=== PATIENT | female | born 1970 | race Caucasian/White ===

== ENCOUNTER 2017-08-04 13:48 | Emergency (ER) | payer OTHER ==
[~2017-08-04] VITALS: Ht 165.1 cm; Wt 92.6 kg
[2017-08-04 14:50] LABS: HEMATOCRIT 44.3 % (36.0-46.0); HEMOGLOBIN 14.8 G/DL (11.9-15.5); MCH 30.8 PG (29.0-34.0); MCHC 33.4 G/DL (30.0-36.0); MCV 92.3 FL (83-99); RBC DIS.WIDTH-CV 14.7 % (11.8-14.6); RBC DIS.WIDTH-SD 50.2 % (39-53); WHITE BLOOD COUNT 13.5 K/uL (4.1-10.2)
[2017-08-04 14:59] LABS: ALBUMIN 4.5 g/dL (3.2-4.8)
[2017-08-04 15:00] LABS: CHLORIDE 98 mEq/L (99-109); POTASSIUM 3.6 mEq/L (3.7-5.4); SODIUM 142 mEq/L (136-147)
[2017-08-04 15:02] LABS: GLUCOSE 157 mg/dL (70-99); TOTAL PROTEIN 8.1 g/dL (6.4-8.3)
[2017-08-04 15:04] LABS: TOTAL BILIRUBIN 0.5 mg/dL (0.0-1.0)
[2017-08-04 15:05] LABS: ALKALINE PHOSPHATASE 63 IU/L (3-129)
[2017-08-04 15:06] LABS: CREATININE 0.9 mg/dL (0.6-1.3); GFR ESTIMATE (CALCULATED) > 59 mL/min/
[2017-08-04 15:07] LABS: AST (GOT) 11 IU/L (2-34); UREA NITROGEN (BUN) 20 mg/dL (9-23)
[2017-08-04 15:08] LABS: ALT (GPT) 11 IU/L (3-49)
[2017-08-04 15:09] LABS: LIPASE 6 U/L (1.0-51.0)
[2017-08-04 15:25] LABS: PLAT.SUFFICIENCY ADEQUATE; PLATELET COUNT 202 K/uL (156-360)
[2017-08-04 16:52] LABS: APPEARANCE CLEAR ((CLEAR)); BILIRUBIN NEGATIVE; BLOOD NEGATIVE; COLOR YELLOW ((YELLOW)); GLUCOSE (STRIP) 50; KETONES 20; LEUKOCYTES NEGATIVE; NITRITE NEGATIVE; PROTEIN (STRIP) 100
[2017-08-04 16:57] LABS: SPECIFIC GRAVITY > 1.060 (1.000-1.030)
[2017-08-04 17:29] LABS: BACTERIA NONE SEEN /HPF; EPITHELIAL CELLS 1+ /HPF; MUCUS TRACE /LPF; RED BLOOD CELLS 0-5 /HPF (0-5); UCUL ADDED? NO; WHITE BLOOD CELLS 0-5 /HPF (0-5)
[2017-08-04] MEDS ORDERED: ZOFRAN4 MG PO (17:43)
[2017-08-04 18:15] VITALS: BP 124/83
== END 2017-08-04 18:18 | disposition home or self-care (01) ==
LOC: EME 13:48
PROVIDERS: Emergency Medicine
DX: R10.13 Epigastric pain (principal); E11.43 Type 2 diabetes mellitus with diabetic autonomic (poly)neuropathy; K31.84 Gastroparesis; K21.9 Gastro-esophageal reflux disease without esophagitis; I45.10 Unspecified right bundle-branch block; F17.200 Nicotine dependence, unspecified, uncomplicated; Z90.49 Acquired absence of other specified parts of digestive tract; Z90.710 Acquired absence of both cervix and uterus
CPT/HCPCS: 74177; 80053; 81003; 83690; 85027; 93005; 99281; 99285; J2405; J7030

== ENCOUNTER 2017-09-04 10:31 | Emergency (ER) | payer OTHER ==
[~2017-09-04] VITALS: Ht 170.2 cm; Wt 95.8 kg
[~2017-09-04 10:31] MED LIST: ZOFRAN4 MG PO
[2017-09-04 10:41] VITALS: BP 100/58
[2017-09-04] MEDS ORDERED: PERCOCET 5/31 TABLET PO (11:37)
[2017-09-04] MEDS ORDERED: BACTRIM,SEPT1 TABLET PO (11:37)
[2017-09-04] MEDS ORDERED: KEFLEX500 MG PO (11:37)
[2017-09-04] MEDS ORDERED: MOTRIN800 MG PO (12:06)
== END 2017-09-04 12:44 | disposition home or self-care (01) ==
LOC: EME 10:31
PROC: 0H98XZZ Drainage of Buttock Skin, External Approach (ICD-10-PCS; principal; 2017-09-04)
DX: L02.31 Cutaneous abscess of buttock (principal); Z86.14 Personal history of Methicillin resistant Staphylococcus aureus infection; F17.200 Nicotine dependence, unspecified, uncomplicated
CPT/HCPCS: 99281; 99284

== ENCOUNTER 2017-09-06 12:31 | Emergency (ER) | payer OTHER ==
[~2017-09-06] VITALS: Ht 165.1 cm; Wt 94.2 kg
[~2017-09-06 12:31] MED LIST changes: +BACTRIM,SEPT1 TABLET PO; +KEFLEX500 MG PO; +MOTRIN800 MG PO; +PERCOCET 5/31 TABLET PO
[2017-09-06 14:20] VITALS: BP 105/60
== END 2017-09-06 14:26 | disposition home or self-care (01) ==
LOC: EME 12:31
DX: Z48.01 Encounter for change or removal of surgical wound dressing (principal); L02.31 Cutaneous abscess of buttock; F41.9 Anxiety disorder, unspecified; F17.200 Nicotine dependence, unspecified, uncomplicated
CPT/HCPCS: 99281; 99284